=== PATIENT | male | born 1945 | race Caucasian/White ===

== ENCOUNTER 2022-12-02 18:35 | Inpatient (IN) | payer MEDICARE, MEDICAID ==
[~2022-12-02] VITALS: Ht 188 cm; Wt 110.7 kg
[2022-12-02] MEDS ORDERED: FERR-68 PO (19:14)
[2022-12-02] MEDS ORDERED: ACET325T53 PO (19:14)
[2022-12-02] MEDS ORDERED: ERYT30GE8 RIGHTEYE (19:14)
[2022-12-02] MEDS ORDERED: BENZ1LOZ58 PO (19:14)
[2022-12-02] MEDS ORDERED: NA P133E RC (19:14)
[2022-12-02] MEDS ORDERED: CLOP75TA15 PO (19:14)
[2022-12-02] MEDS ORDERED: CHLO118L3 PO (19:14)
[2022-12-02] MEDS ORDERED: DORZ10DR11 LEFTEYE (19:14)
[2022-12-02] MEDS ORDERED: ATRO2DRO4 EACHEYE (19:14)
[2022-12-02] MEDS ORDERED: CICL6.6S5 TP (19:14)
[2022-12-02] MEDS ORDERED: CLON0.1T PO (19:14)
[2022-12-02] MEDS ORDERED: FOLI1TAB27 PO (19:14)
[2022-12-02] MEDS ORDERED: ASPI81TA31 PO (19:14)
[2022-12-02] MEDS ORDERED: ISOS10TA8 PO (19:31)
[2022-12-02] MEDS ORDERED: IPRA3AMP22 IH (19:31)
[2022-12-02] MEDS ORDERED: MULT-1045 PO (19:31)
[2022-12-02] MEDS ORDERED: POLY15DR31 OP (19:31)
[2022-12-02] MEDS ORDERED: LATA7.5D LEFTEYE (19:31)
[2022-12-02] MEDS ORDERED: GLUC1KIT IJ (19:31)
[2022-12-02] MEDS ORDERED: MAGN400C PO (19:31)
[2022-12-02] MEDS ORDERED: GABA-532 PO (19:31)
[2022-12-02] MEDS ORDERED: OXYB5TAB16 PO (19:31)
[2022-12-02] MEDS ORDERED: HYDR-3972 PO (19:31)
[2022-12-02] MEDS ORDERED: ASPART INSULIN (19:31)
[2022-12-02] MEDS ORDERED: MAG-151 PO (19:31)
[2022-12-02] MEDS ORDERED: METH-806 PO (19:31)
[2022-12-02] MEDS ORDERED: NITR0.4T48 SL (19:31)
[2022-12-02] MEDS ORDERED: FURO80TA3 PO (19:31)
[2022-12-02] MEDS ORDERED: CYCL30DR OP (19:31)
[2022-12-02] MEDS ORDERED: NATE120T6 PO (19:31)
[2022-12-02] MEDS ORDERED: METO-356 PO (19:31)
[2022-12-02] MEDS ORDERED: ROSU20TA2 PO (19:31)
[2022-12-02] MEDS ORDERED: PANT40TA49 PO (19:31)
[2022-12-02] MEDS ORDERED: PRED5DRO16 RIGHTEYE (19:31)
[2022-12-02] MEDS ORDERED: MAGN400O6 PO (19:31)
[2022-12-02] MEDS ORDERED: MELA3CAP2 PO (19:31)
[2022-12-02 19:58] LABS: BASOPHILS % (AUTO) 0.2 % (0.0-2.0); EOSINOPHILS # (AUTO) 0.5 K/uL (0.0-0.7); HEMATOCRIT 40.8 % (36.7-47.1); HEMOGLOBIN 13.2 g/dL (12.5-16.3); LYMPHOCYTES # (AUTO) 1.2 K/uL (0.8-4.8); LYMPHOCYTES % (AUTO) 9.3 % (20.5-51.5); MEAN CORPUSCULAR HEMOGLOBIN 28.8 uug (23.8-33.4); MEAN CORPUSCULAR HGB CONC 32 g/dL (32.5-36.3); MONOCYTES # (AUTO) 0.9 K/uL (0.1-1.30); MONOCYTES % (AUTO) 7.3 % (0.0-11.0); NEUTROPHILS # (AUTO) 10.1 K/uL (1.8-8.9); NEUTROPHILS % (AUTO) 79.2 % (38.5-71.5); PLATELET COUNT (AUTO) 206 K/uL (152-348); RED BLOOD CELL COUNT(AUTO) 4.58 MIL/uL (4.06-5.63); RED CELL DISTRIBUTION WIDTH 14.4 % (12.1-16.2); WHITE BLOOD COUNT (AUTO) 12.7 K/uL (3.6-10.2)
[2022-12-02 20:06] LABS: DIFFERENTIAL COMMENT 1
[2022-12-02 20:30] LABS: CALCIUM 8.8 mg/dL (8.5-10.1); CARBON DIOXIDE 28 mmol/L (21-32); CHLORIDE 100 mmol/L (98-107); CREATININE 2.1 mg/dL (0.6-1.3); GLUCOSE 159 mg/dL (74-106); POTASSIUM 3.9 mmol/L (3.5-5.1); SODIUM SERUM 139 mmol/L (136-145); UREA NITROGEN, BLOOD 26 mg/dL (7-18)
[2022-12-02] MEDS ORDERED: MAGNESIUM HYDROXIDE 30 ML LIQUID UDC PO PRN (20:30)
[2022-12-02] MEDS ORDERED: MORPHINE SULFATE 2 MG/1 ML DISP.SYRIN IV PRN (20:30)
[2022-12-02] MEDS ORDERED: IPRATROPIUM BROMIDE 0.5 MG/2.5 ML NEBU NEB PRN (20:30)
[2022-12-02] MEDS ORDERED: METHOCARBAMOL 500 MG TABLET PO PRN (20:30)
[2022-12-02] MEDS ORDERED: ALBUTEROL SULFATE 2.5 MG/ 0.5 ML NEBU NEB PRN (20:30)
[2022-12-02] MEDS ORDERED: ACETAMINOPHEN 325 MG TABLET PO PRN (20:30)
[2022-12-02] MEDS ORDERED: METOPROLOL SUCCINATE XL 25 MG TAB.SR.24H PO SCH (20:30)
[2022-12-02] MEDS ORDERED: ONDANSETRON 4 MG/2 ML VIAL IV PRN (20:30)
[2022-12-02] MEDS ORDERED: Medication Not On Formulary EA (Melatonin 3 MG) PO PRN (20:30)
[2022-12-02] MEDS ORDERED: NITROGLYCERIN 0.4 MG/TAB BOTTLE SL PRN (20:30)
[2022-12-02] MEDS ORDERED: FLEET ENEMA 133 ML BOTTLE RC PRN (20:30)
[2022-12-02] MEDS ORDERED: HYDROCODONE/APAP 5-325MG TABLET PO PRN (20:30)
[2022-12-02 20:53] LABS: ALANINE AMINOTRANSFERASE 24 U/L (16-63); ALBUMIN 3.3 g/dL (3.4-5.0); ALKALINE PHOSPHATASE 77 U/L (50-136); ASPARTATE AMINOTRANSFERASE 12 U/L (15-37); BILIRUBIN,DIRECT 0.2 mg/dL (0.0-0.2); BILIRUBIN,TOTAL 0.5 mg/dL (0.2-1.0); NT-PRO BNP 1115 pg/mL (0-125); TOTAL PROTEIN, SERUM 6.9 g/dL (6.4-8.2)
[2022-12-02] MEDS ORDERED: Medication Not On Formulary EA (Rosuvastatin Calcium (Crestor) 20 MG) PO SCH (21:00)
[2022-12-02] MEDS ORDERED: PIPERACILLIN/TAZOBACTAM/D5W 50 ML IV ONE (21:28)
[2022-12-02] MEDS: PIPERACILLIN SODIUM/TAZOBACTAM 3.375 G in IV DEXTROSE 5% 50 ML IV SCH (21:29)
[2022-12-03 06:36] LABS: BASOPHILS % (AUTO) 0.1 % (0.0-2.0); EOSINOPHILS # (AUTO) 0.4 K/uL (0.0-0.7); EOSINOPHILS % (AUTO) 3.9 % (0.0-7.0); HEMOGLOBIN 13.3 g/dL (12.5-16.3); LYMPHOCYTES % (AUTO) 9.5 % (20.5-51.5); MEAN CORPUSCULAR HEMOGLOBIN 29.1 uug (23.8-33.4); MEAN CORPUSCULAR HGB CONC 33 g/dL (32.5-36.3); MEAN CORPUSCULAR VOLUME 87.6 fL (73.0-96.2); MONOCYTES # (AUTO) 0.9 K/uL (0.1-1.30); MONOCYTES % (AUTO) 8.1 % (0.0-11.0); NEUTROPHILS # (AUTO) 8.6 K/uL (1.8-8.9); NEUTROPHILS % (AUTO) 78.4 % (38.5-71.5); PLATELET COUNT (AUTO) 199 K/uL (152-348); RED BLOOD CELL COUNT(AUTO) 4.57 MIL/uL (4.06-5.63); RED CELL DISTRIBUTION WIDTH 14.6 % (12.1-16.2); WHITE BLOOD COUNT (AUTO) 10.9 K/uL (3.6-10.2)
[2022-12-03 06:44] LABS: DIFFERENTIAL COMMENT 1
[2022-12-03 06:55] LABS: ALANINE AMINOTRANSFERASE 22 U/L (16-63); ALBUMIN 3.1 g/dL (3.4-5.0); ALKALINE PHOSPHATASE 80 U/L (50-136); ASPARTATE AMINOTRANSFERASE 14 U/L (15-37); BILIRUBIN,TOTAL 0.5 mg/dL (0.2-1.0); CARBON DIOXIDE 26 mmol/L (21-32); CHLORIDE 100 mmol/L (98-107); CHOLESTEROL 139 mg/dL (<200); CREATININE 1.8 mg/dL (0.6-1.3); GLUCOSE 146 mg/dL (74-106); HDL CHOLESTEROL 61 mg/dL (40-60); MAGNESIUM 1.9 mg/dL (1.8-2.4); NT-PRO BNP 620 pg/mL (0-125); PHOSPHOROUS 2.8 mg/dL (2.5-4.9); POTASSIUM 3.9 mmol/L (3.5-5.1); SODIUM SERUM 138 mmol/L (136-145); TOTAL PROTEIN, SERUM 6.7 g/dL (6.4-8.2); TRIGLYCERIDES 66 MG/DL (30-150); UREA NITROGEN, BLOOD 23 mg/dL (7-18)
[2022-12-03] MEDS ORDERED: PIPERACILLIN/TAZOBACTAM/D5W 50 ML IV ONE (06:55)
[2022-12-03] MEDS: PIPERACILLIN SODIUM/TAZOBACTAM 3.375 G in IV DEXTROSE 5% 50 ML IV SCH (06:56)
[2022-12-03 06:58] LABS: THYROID STIMULATING HORMONE 2.364 mIU/mL (0.358-3.740)
[2022-12-03] MEDS ORDERED: VANCOMYCIN IV 1,250 MG in IV DEXTROSE 5% 250 ML IV ONE (08:00)
[2022-12-03] MEDS ORDERED: VANCOMYCIN IV 1,500 MG in IV DEXTROSE 5% 500 ML IV ONE (08:30)
[2022-12-03] MEDS ORDERED: Medication Not On Formulary EA (Nateglinide 120 MG) PO SCH (09:00)
[2022-12-03] MEDS ORDERED: DORZOLAMIDE/TIMOLOL OPHT DROP 10 ML BOTTLE LEFTEYE SCH (09:00)
[2022-12-03] MEDS ORDERED: ATROPINE SULFATE 1% OPHT DROP 2 ML EACHEYE SCH (09:00)
[2022-12-03] MEDS ORDERED: ISOSORBIDE MONONITRATE 10 MG TABLET PO SCH (09:00)
[2022-12-03] MEDS ORDERED: Medication Not On Formulary EA (Multivitamin (Multi-Vitamin Daily) 1 EACH) PO SCH (09:00)
[2022-12-03] MEDS: GABAPENTIN 100 MG CAPSULE PO SCH ×2 (09:00→17:31)
[2022-12-03] MEDS: CLOPIDOGREL 75 MG TABLET PO SCH (09:00)
[2022-12-03] MEDS: OXYBUTYNIN CHLORIDE 5 MG TABLET PO SCH ×3 (09:00→17:35)
[2022-12-03] MEDS: ASPIRIN 81 MG TAB.CHEW PO SCH (09:00)
[2022-12-03] MEDS ORDERED: MELATONIN 3 MG TABLET PO PRN (09:30)
[2022-12-03] MEDS ORDERED: ASPIRIN 81 MG TAB.CHEW ONE (09:56)
[2022-12-03] MEDS ORDERED: CLOPIDOGREL 75 MG TABLET ONE (09:56)
[2022-12-03] MEDS ORDERED: PANTOPRAZOLE SODIUM 40 MG TABLET.DR PO ONE (09:56)
[2022-12-03] MEDS ORDERED: OXYBUTYNIN CHLORIDE 5 MG TABLET ONE ×3 (09:57→17:29)
[2022-12-03] MEDS ORDERED: GABAPENTIN 100 MG CAPSULE ONE ×2 (09:57→17:29)
[2022-12-03] MEDS ORDERED: METOPROLOL SUCCINATE XL 25 MG TAB.SR.24H PO ONE ×2 (09:57→21:34)
[2022-12-03] MEDS ORDERED: ATROPINE SULFATE 1% OPHT DROP 2 ML ONE (09:58)
[2022-12-03] MEDS: METOPROLOL SUCCINATE XL 25 MG TAB.SR.24H PO SCH ×2 (10:04→21:43)
[2022-12-03] MEDS: PANTOPRAZOLE SODIUM 40 MG TABLET.DR PO SCH (10:05)
[2022-12-03] MEDS: ISOSORBIDE MONONITRATE 30 MG TAB.SR.24H PO SCH (10:06)
[2022-12-03] MEDS ORDERED: NATEGLINIDE 60 MG TABLET ONE ×2 (11:30→17:29)
[2022-12-03] MEDS: NATEGLINIDE 60 MG TABLET PO SCH ×2 (11:31→16:30)
[2022-12-03] MEDS: MEROPENEM 500 MG in IV NORMAL SALINE 50 ML IV SCH (14:12)
[2022-12-03] MEDS: DORZOLAMIDE/TIMOLOL OPHT DROP 10 ML BOTTLE LEFTEYE SCH (17:00)
[2022-12-03] MEDS: POLYVINYL ALCOHOL OPHT DROPS 15 ML BOTTLE EACHEYE SCH (17:33)
[2022-12-03] MEDS: ATROPINE SULFATE 1% OPHT DROP 2 ML RIGHTEYE SCH (17:34)
[2022-12-03] MEDS: prednisoLONE ACET 1% OPHT DROP 5 ML BOTTLE RIGHTEYE SCH (17:35)
[2022-12-03] MEDS ORDERED: DEXTROSE 50% 50 ML DISP.SYRIN IV PRN (19:45)
[2022-12-03] MEDS ORDERED: IPRATROPIUM BROMIDE 0.5 MG/2.5 ML NEBU NEB PRN (20:00)
[2022-12-03] MEDS ORDERED: ALBUTEROL SULFATE 2.5 MG/ 0.5 ML NEBU NEB PRN (20:00)
[2022-12-03] MEDS: HYDROCORTISONE 2.5% CREAM 20 GM TUBE TOP SCH (21:00)
[2022-12-03] MEDS: DOXYCYCLINE HYCLATE IV 100 MG in IV DEXTROSE 5% 100 ML IV SCH (21:00)
[2022-12-03] MEDS: BLOOD SUGAR DIAGNOSTIC 1 EACH STRIP VI SCH (21:24)
[2022-12-03] MEDS ORDERED: INSULIN REGULAR, HUMAN 300 UNIT/3 ML VIAL ONE (21:25)
[2022-12-03] MEDS: INSULIN REGULAR, HUMAN 300 UNIT/3 ML VIAL SQ PRN (21:29)
[2022-12-03] MEDS ORDERED: HYDROCORTISONE 1% CREAM 30 GM TUBE TP ONE (21:33)
[2022-12-03] MEDS ORDERED: ATORVASTATIN 20 MG TABLET ONE (21:34)
[2022-12-03] MEDS: ATORVASTATIN 40 MG TABLET PO SCH (21:42)
[2022-12-03] MEDS: LATANOPROST OPHT DROP 2.5 ML BOTTLE LEFTEYE SCH (21:42)
[2022-12-03] MEDS ORDERED: DOXYCYCLINE HYCLATE 100 MG TABLET ONE (22:11)
[2022-12-03] MEDS ORDERED: DOXYCYCLINE HYCLATE 100 MG TABLET PO SCH (22:30)
[2022-12-04] MEDS: MEROPENEM 500 MG in IV NORMAL SALINE 50 ML IV SCH ×2 (02:29→15:04)
[2022-12-04 05:46] LABS: BASOPHILS % (AUTO) 0.5 % (0.0-2.0); EOSINOPHILS # (AUTO) 0.3 K/uL (0.0-0.7); HEMATOCRIT 41.5 % (36.7-47.1); HEMOGLOBIN 13.8 g/dL (12.5-16.3); LYMPHOCYTES # (AUTO) 0.9 K/uL (0.8-4.8); LYMPHOCYTES % (AUTO) 11.8 % (20.5-51.5); MEAN CORPUSCULAR HEMOGLOBIN 29.4 uug (23.8-33.4); MEAN CORPUSCULAR HGB CONC 33 g/dL (32.5-36.3); MEAN CORPUSCULAR VOLUME 88.3 fL (73.0-96.2); MONOCYTES # (AUTO) 0.8 K/uL (0.1-1.30); MONOCYTES % (AUTO) 9.7 % (0.0-11.0); NEUTROPHILS # (AUTO) 5.9 K/uL (1.8-8.9); PLATELET COUNT (AUTO) 204 K/uL (152-348); RED CELL DISTRIBUTION WIDTH 14.4 % (12.1-16.2)
[2022-12-04 05:55] LABS: DIFFERENTIAL COMMENT 1
[2022-12-04 06:07] LABS: ALANINE AMINOTRANSFERASE 31 U/L (16-63); ALBUMIN 2.9 g/dL (3.4-5.0); ALKALINE PHOSPHATASE 85 U/L (50-136); ASPARTATE AMINOTRANSFERASE 18 U/L (15-37); BILIRUBIN,TOTAL 0.5 mg/dL (0.2-1.0); CALCIUM 8.5 mg/dL (8.5-10.1); CARBON DIOXIDE 27 mmol/L (21-32); CHLORIDE 103 mmol/L (98-107); GLUCOSE 153 mg/dL (74-106); MAGNESIUM 2.1 mg/dL (1.8-2.4); POTASSIUM 3.6 mmol/L (3.5-5.1); SODIUM SERUM 140 mmol/L (136-145); TOTAL PROTEIN, SERUM 6.7 g/dL (6.4-8.2); UREA NITROGEN, BLOOD 22 mg/dL (7-18)
[2022-12-04] MEDS ORDERED: PANTOPRAZOLE SODIUM 40 MG TABLET.DR PO ONE (07:02)
[2022-12-04] MEDS: PANTOPRAZOLE SODIUM 40 MG TABLET.DR PO SCH (07:05)
[2022-12-04] MEDS: BLOOD SUGAR DIAGNOSTIC 1 EACH STRIP VI SCH ×5 (07:49→21:30)
[2022-12-04] MEDS ORDERED: NATEGLINIDE 60 MG TABLET ONE (07:55)
[2022-12-04] MEDS: NATEGLINIDE 60 MG TABLET PO SCH ×3 (08:14→17:03)
[2022-12-04] MEDS: INSULIN REGULAR, HUMAN 300 UNIT/3 ML VIAL SQ PRN ×4 (08:21→20:45)
[2022-12-04] MEDS ORDERED: MAGNESIUM OXIDE 400 MG TABLET PO SCH (09:00)
[2022-12-04] MEDS ORDERED: FUROSEMIDE 40 MG TABLET PO SCH (09:29)
[2022-12-04 10:10] VITALS: BP 131/68; TEMP 98.1; O2SAT 100
[2022-12-04] MEDS: ISOSORBIDE MONONITRATE 30 MG TAB.SR.24H PO SCH (10:55)
[2022-12-04] MEDS: MULTIVITAMINS,THERAPEUTIC TABLET PO SCH (10:56)
[2022-12-04] MEDS: prednisoLONE ACET 1% OPHT DROP 5 ML BOTTLE RIGHTEYE SCH ×2 (10:57→17:04)
[2022-12-04] MEDS: ATROPINE SULFATE 1% OPHT DROP 2 ML RIGHTEYE SCH ×2 (10:58→17:04)
[2022-12-04] MEDS: POLYVINYL ALCOHOL OPHT DROPS 15 ML BOTTLE EACHEYE SCH ×2 (10:58→17:04)
[2022-12-04] MEDS: DOXYCYCLINE HYCLATE IV 100 MG in IV DEXTROSE 5% 100 ML IV SCH ×2 (10:59→20:32)
[2022-12-04] MEDS: CLOPIDOGREL 75 MG TABLET PO SCH (11:07)
[2022-12-04] MEDS: FUROSEMIDE 40 MG TABLET PO SCH (11:08)
[2022-12-04] MEDS: ASPIRIN 81 MG TAB.CHEW PO SCH (11:08)
[2022-12-04] MEDS: OXYBUTYNIN CHLORIDE 5 MG TABLET PO SCH ×3 (11:08→17:06)
[2022-12-04] MEDS: METOPROLOL SUCCINATE XL 25 MG TAB.SR.24H PO SCH ×2 (11:08→20:30)
[2022-12-04] MEDS: glipiZIDE 5 MG TABLET PO SCH ×2 (11:09→17:06)
[2022-12-04] MEDS: HYDROCORTISONE 2.5% CREAM 20 GM TUBE TOP SCH ×2 (11:09→20:32)
[2022-12-04] MEDS: FLUTICASONE/VILANTEROL 1 EACH BLST.W.DEV INH SCH (11:10)
[2022-12-04] MEDS: GABAPENTIN 100 MG CAPSULE PO SCH ×2 (11:11→17:06)
[2022-12-04 11:52] LABS: CREATINE KINASE, TOTAL 73 U/L (39-308); PHOSPHOROUS 3.2 mg/dL (2.5-4.9); VANCOMYCIN,RANDOM 6.8 ug/mL (18.0-26.0)
[2022-12-04 12:00] VITALS: BP 126/71; TEMP 97.8; O2SAT 100
[2022-12-04] MEDS ORDERED: VANCOMYCIN IV 1,250 MG in IV DEXTROSE 5% 250 ML IV ONE (12:00)
[2022-12-04] MEDS: DORZOLAMIDE/TIMOLOL OPHT DROP 10 ML BOTTLE LEFTEYE SCH ×2 (12:48→17:04)
[2022-12-04 16:00] VITALS: BP 129/67; TEMP 97.9; O2SAT 100
[2022-12-04 20:00] VITALS: BP 145/71; TEMP 98.5; O2SAT 99
[2022-12-04] MEDS: ATORVASTATIN 40 MG TABLET PO SCH (20:30)
[2022-12-04] MEDS: LATANOPROST OPHT DROP 2.5 ML BOTTLE LEFTEYE SCH (20:31)
[2022-12-05] VITALS (7 sets, daily range): BP systolic 130–151; BP diastolic 61–78; TEMP 97.7–98.7; O2SAT 94–96
[2022-12-05] MEDS: MEROPENEM 500 MG in IV NORMAL SALINE 50 ML IV SCH ×2 (01:08→13:52)
[2022-12-05] MEDS: PANTOPRAZOLE SODIUM 40 MG TABLET.DR PO SCH ×2 (06:11→06:33)
[2022-12-05] MEDS: NATEGLINIDE 60 MG TABLET PO SCH ×3 (06:32→16:47)
[2022-12-05] MEDS: glipiZIDE 5 MG TABLET PO SCH ×2 (06:33→16:46)
[2022-12-05] MEDS: BLOOD SUGAR DIAGNOSTIC 1 EACH STRIP VI SCH ×3 (06:33→17:04)
[2022-12-05] MEDS: prednisoLONE ACET 1% OPHT DROP 5 ML BOTTLE RIGHTEYE SCH ×2 (09:00→16:49)
[2022-12-05] MEDS: CLOPIDOGREL 75 MG TABLET PO SCH (09:50)
[2022-12-05] MEDS: ATROPINE SULFATE 1% OPHT DROP 2 ML RIGHTEYE SCH ×2 (10:22→16:49)
[2022-12-05] MEDS: FLUTICASONE/VILANTEROL 1 EACH BLST.W.DEV INH SCH (10:22)
[2022-12-05] MEDS: POLYVINYL ALCOHOL OPHT DROPS 15 ML BOTTLE EACHEYE SCH ×2 (10:23→16:50)
[2022-12-05] MEDS: DORZOLAMIDE/TIMOLOL OPHT DROP 10 ML BOTTLE LEFTEYE SCH ×2 (10:23→17:04)
[2022-12-05] MEDS: METOPROLOL SUCCINATE XL 25 MG TAB.SR.24H PO SCH ×2 (10:31→22:44)
[2022-12-05] MEDS: ISOSORBIDE MONONITRATE 30 MG TAB.SR.24H PO SCH (10:31)
[2022-12-05] MEDS: OXYBUTYNIN CHLORIDE 5 MG TABLET PO SCH ×3 (10:32→16:46)
[2022-12-05] MEDS: MULTIVITAMINS,THERAPEUTIC TABLET PO SCH (10:32)
[2022-12-05] MEDS: GABAPENTIN 100 MG CAPSULE PO SCH ×2 (10:32→16:46)
[2022-12-05] MEDS: ASPIRIN 81 MG TAB.CHEW PO SCH (10:32)
[2022-12-05] MEDS: FUROSEMIDE 40 MG TABLET PO SCH (10:32)
[2022-12-05] MEDS: HYDROCORTISONE 2.5% CREAM 20 GM TUBE TOP SCH ×2 (10:33→22:46)
[2022-12-05] MEDS: DOXYCYCLINE HYCLATE IV 100 MG in IV DEXTROSE 5% 100 ML IV SCH ×2 (10:48→22:33)
[2022-12-05] MEDS: INSULIN REGULAR, HUMAN 300 UNIT/3 ML VIAL SQ PRN (13:02)
[2022-12-05] MEDS ORDERED: VANCOMYCIN IV 1,250 MG in IV DEXTROSE 5% 250 ML IV ONE ×2 (14:00→21:30)
[2022-12-05] MEDS ORDERED: ATORVASTATIN 20 MG TABLET PO SCH (21:00)
[2022-12-05] MEDS: LATANOPROST OPHT DROP 2.5 ML BOTTLE LEFTEYE SCH (22:39)
[2022-12-05] MEDS ORDERED: VANCOMYCIN IV 200 ML ONE (23:53)
[2022-12-05] MEDS ORDERED: VANCOMYCIN HCL 500 MG VIAL ONE (23:53)
[2022-12-06] MEDS: MEROPENEM 500 MG in IV NORMAL SALINE 50 ML IV SCH (02:00)
[2022-12-06 07:02] LABS: BASOPHILS % (AUTO) 0.4 % (0.0-2.0); EOSINOPHILS # (AUTO) 0.4 K/uL (0.0-0.7); EOSINOPHILS % (AUTO) 4.8 % (0.0-7.0); HEMATOCRIT 40.9 % (36.7-47.1); HEMOGLOBIN 13.9 g/dL (12.5-16.3); LYMPHOCYTES # (AUTO) 1.5 K/uL (0.8-4.8); MEAN CORPUSCULAR HEMOGLOBIN 29.5 uug (23.8-33.4); MEAN CORPUSCULAR HGB CONC 34 g/dL (32.5-36.3); MEAN CORPUSCULAR VOLUME 86.9 fL (73.0-96.2); MONOCYTES # (AUTO) 0.9 K/uL (0.1-1.30); MONOCYTES % (AUTO) 10.2 % (0.0-11.0); NEUTROPHILS # (AUTO) 5.8 K/uL (1.8-8.9); NEUTROPHILS % (AUTO) 67.6 % (38.5-71.5); PLATELET COUNT (AUTO) 237 K/uL (152-348); RED CELL DISTRIBUTION WIDTH 14.2 % (12.1-16.2); WHITE BLOOD COUNT (AUTO) 8.6 K/uL (3.6-10.2)
[2022-12-06 07:04] LABS: CALCIUM 9.1 mg/dL (8.5-10.1); CARBON DIOXIDE 26 mmol/L (21-32); CHLORIDE 103 mmol/L (98-107); CREATININE 1.9 mg/dL (0.6-1.3); GLUCOSE 120 mg/dL (74-106); MAGNESIUM 2.1 mg/dL (1.8-2.4); PHOSPHOROUS 3.7 mg/dL (2.5-4.9); POTASSIUM 3.9 mmol/L (3.5-5.1); SODIUM SERUM 140 mmol/L (136-145); UREA NITROGEN, BLOOD 25 mg/dL (7-18)
[2022-12-06 07:06] LABS: PTH, INTACT 33 pg/mL (15-65)
[2022-12-06] MEDS: PANTOPRAZOLE SODIUM 40 MG TABLET.DR PO SCH (07:12)
[2022-12-06 07:14] LABS: DIFFERENTIAL COMMENT 1
[2022-12-06] MEDS: BLOOD SUGAR DIAGNOSTIC 1 EACH STRIP VI SCH ×2 (07:59→12:19)
[2022-12-06] MEDS: glipiZIDE 5 MG TABLET PO SCH (08:04)
[2022-12-06] MEDS: NATEGLINIDE 60 MG TABLET PO SCH ×2 (08:05→12:32)
[2022-12-06] MEDS ORDERED: DOXYCYCLINE HYCLATE 100 MG TABLET PO SCH (09:00)
[2022-12-06] MEDS: FUROSEMIDE 40 MG TABLET PO SCH (09:52)
[2022-12-06] MEDS: CLOPIDOGREL 75 MG TABLET PO SCH (09:52)
[2022-12-06] MEDS: OXYBUTYNIN CHLORIDE 5 MG TABLET PO SCH ×2 (09:52→13:18)
[2022-12-06] MEDS: MULTIVITAMINS,THERAPEUTIC TABLET PO SCH (09:52)
[2022-12-06] MEDS: GABAPENTIN 100 MG CAPSULE PO SCH (09:52)
[2022-12-06] MEDS: ISOSORBIDE MONONITRATE 30 MG TAB.SR.24H PO SCH (09:53)
[2022-12-06] MEDS: METOPROLOL SUCCINATE XL 25 MG TAB.SR.24H PO SCH (09:54)
[2022-12-06] MEDS: FLUTICASONE/VILANTEROL 1 EACH BLST.W.DEV INH SCH (09:55)
[2022-12-06] MEDS: prednisoLONE ACET 1% OPHT DROP 5 ML BOTTLE RIGHTEYE SCH (09:56)
[2022-12-06] MEDS: POLYVINYL ALCOHOL OPHT DROPS 15 ML BOTTLE EACHEYE SCH (09:56)
[2022-12-06] MEDS: ATROPINE SULFATE 1% OPHT DROP 2 ML RIGHTEYE SCH (09:57)
[2022-12-06] MEDS: HYDROCORTISONE 2.5% CREAM 20 GM TUBE TOP SCH (09:57)
[2022-12-06] MEDS: DORZOLAMIDE/TIMOLOL OPHT DROP 10 ML BOTTLE LEFTEYE SCH (09:58)
[2022-12-06] MEDS: ASPIRIN 81 MG TAB.CHEW PO SCH (09:59)
[2022-12-06 11:29] VITALS: BP 131/73; TEMP 98.5; O2SAT 94
[2022-12-06] MEDS ORDERED: DOXY100T2 PO (14:10)
[2022-12-06] MEDS ORDERED: FURO40TA5 PO (14:10)
[2022-12-06] MEDS ORDERED: ACET325T53 PO (14:10)
[2022-12-06] MEDS ORDERED: ROSU5TAB PO (14:10)
[2022-12-06] MEDS ORDERED: LEVO250T59 PO (14:10)
[2022-12-06] MEDS ORDERED: ASPI-1101 PO (14:10)
[2022-12-06] MEDS ORDERED: ACID1TAB4 PO (14:10)
[2022-12-06] MEDS ORDERED: GLIP5TAB13 PO (14:16)
[2022-12-06] MEDS ORDERED: ROSU20TA2 PO (15:04)
[2022-12-06] MEDS ORDERED: levoFLOXacin 500 MG TABLET PO SCH (16:30)
[2022-12-06] MEDS ORDERED: VANCOMYCIN IV 1,500 MG in IV DEXTROSE 5% 500 ML IV SCH (21:00)
[2022-12-07 08:06] LABS: A/G RATIO 0.9 (0.7-1.7); ALBUMIN 2.7 g/dL (2.9-4.4); ALPHA-1-GLOBULIN 0.4 g/dL (0.0-0.4); ALPHA-2-GLOBULIN 1.2 g/dL (0.4-1.0); BETA GLOBULIN 1.1 g/dL (0.7-1.3); GAMMA GLOBULIN 0.2 g/dL (0.4-1.8); GLOBULIN, TOTAL 2.9 g/dL (2.2-3.9); M-SPIKE Not Observed g/dL (Not Observed)
== END 2022-12-06 16:30 | DRG 871 ==
LOC: ER 18:40 → TRANSITION 21:00 → TELE3 12-04 09:03
PROVIDERS: ADMIT Internal Medicine; ATTEND Internal Medicine
DX: A41.9 Sepsis, unspecified organism (principal); N17.0 Acute kidney failure with tubular necrosis; L03.115 Cellulitis of right lower limb; I42.9 Cardiomyopathy, unspecified; L03.116 Cellulitis of left lower limb; I13.0 Hypertensive heart and chronic kidney disease with heart failure and stage 1 through stage 4 chronic kidney disease, or unspecified chronic kidney disease; I50.32 Chronic diastolic (congestive) heart failure; E11.22 Type 2 diabetes mellitus with diabetic chronic kidney disease; E66.9 Obesity, unspecified; E78.5 Hyperlipidemia, unspecified; I25.10 Atherosclerotic heart disease of native coronary artery without angina pectoris; I25.2 Old myocardial infarction; K21.9 Gastro-esophageal reflux disease without esophagitis; M79.7 Fibromyalgia; J44.9 Chronic obstructive pulmonary disease, unspecified; N18.9 Chronic kidney disease, unspecified; Z20.822 Contact with and (suspected) exposure to COVID-19; Z88.0 Allergy status to penicillin; Z95.1 Presence of aortocoronary bypass graft; Z86.16 Personal history of COVID-19; Z79.82 Long term (current) use of aspirin; Z79.4 Long term (current) use of insulin; Z95.5 Presence of coronary angioplasty implant and graft; Z95.810 Presence of automatic (implantable) cardiac defibrillator; I87.2 Venous insufficiency (chronic) (peripheral); F17.210 Nicotine dependence, cigarettes, uncomplicated; M19.90 Unspecified osteoarthritis, unspecified site; H54.61 Unqualified visual loss, right eye, normal vision left eye; N40.0 Benign prostatic hyperplasia without lower urinary tract symptoms; F41.9 Anxiety disorder, unspecified; F25.9 Schizoaffective disorder, unspecified; F31.9 Bipolar disorder, unspecified; G20 Parkinson's disease; F39 Unspecified mood [affective] disorder; E11.65 Type 2 diabetes mellitus with hyperglycemia; H40.9 Unspecified glaucoma; Z68.31 Body mass index [BMI] 31.0-31.9, adult
CPT/HCPCS: 36415; 71045; 76770; 82652; 83735; 83970; 84100; 84155; 84165; 84443; 85025; 85610; 85730; 87040; 93005; 93307; A4663; G0378; J1815; J2185; J2543; J2650; J3370; J3490; J7050; J7060

== ENCOUNTER 2023-04-08 09:39 | Inpatient (IN) | payer MEDICARE, OTHER ==
[~2023-04-08] VITALS: Ht 188 cm; Wt 109.3 kg
[~2023-04-08 09:39] MED LIST: ACET325T53 PO; ACID1TAB4 PO; ASPI-1101 PO; ATRO2DRO4 RIGHTEYE; CLOP75TA15 PO; CYCL30DR OP; DORZ10DR11 LEFTEYE; DOXY100T2 PO; FURO40TA5 PO; GABA-532 PO; GLIP5TAB13 PO; HYDR-3972 PO; IPRA3AMP22 IH; ISOS10TA8 PO; LATA7.5D LEFTEYE; LEVO250T59 PO; MELA3CAP2 PO; METH-806 PO; METO-356 PO; MULT-1045 PO; NA P133E RC; NATE120T6 PO; NITR0.4T48 SL; OXYB5TAB16 PO; PANT40TA49 PO; POLY15DR31 OP; PRED5DRO16 RIGHTEYE; ROSU20TA2 PO
[2023-04-08] MEDS ORDERED: CLON0.1T PO (10:09)
[2023-04-08] MEDS ORDERED: FLUT16SP BNOSTRILS (10:09)
[2023-04-08] MEDS ORDERED: PEG15DRO3 OP (10:09)
[2023-04-08] MEDS ORDERED: ONDA4TAB5 PO (10:09)
[2023-04-08] MEDS ORDERED: LOPE2TAB25 PO (10:09)
[2023-04-08] MEDS ORDERED: SIME80TA15 PO (10:09)
[2023-04-08] MEDS ORDERED: WHEA1POW6 PO (10:09)
[2023-04-08] MEDS ORDERED: MAGN400C PO (10:09)
[2023-04-08 10:30] LABS: BASOPHILS % (AUTO) 0.3 % (0.0-2.0); EOSINOPHILS # (AUTO) 0.5 K/uL (0.0-0.7); EOSINOPHILS % (AUTO) 7.8 % (0.0-7.0); HEMATOCRIT 40.3 % (36.7-47.1); HEMOGLOBIN 13.1 g/dL (12.5-16.3); LYMPHOCYTES # (AUTO) 1.5 K/uL (0.8-4.8); LYMPHOCYTES % (AUTO) 22.6 % (20.5-51.5); MEAN CORPUSCULAR HEMOGLOBIN 28.6 uug (23.8-33.4); MEAN CORPUSCULAR HGB CONC 33 g/dL (32.5-36.3); MEAN CORPUSCULAR VOLUME 88.1 fL (73.0-96.2); MONOCYTES # (AUTO) 0.6 K/uL (0.1-1.30); MONOCYTES % (AUTO) 9.4 % (0.0-11.0); NEUTROPHILS # (AUTO) 3.8 K/uL (1.8-8.9); NEUTROPHILS % (AUTO) 59.9 % (38.5-71.5); PLATELET COUNT (AUTO) 189 K/uL (152-348); RED BLOOD CELL COUNT(AUTO) 4.57 MIL/uL (4.06-5.63); RED CELL DISTRIBUTION WIDTH 15.3 % (12.1-16.2); WHITE BLOOD COUNT (AUTO) 6.4 K/uL (3.6-10.2)
[2023-04-08 10:33] LABS: DIFFERENTIAL COMMENT 1
[2023-04-08 10:46] LABS: ALANINE AMINOTRANSFERASE 34 U/L (16-63); ALBUMIN 3.6 g/dL (3.4-5.0); ALKALINE PHOSPHATASE 70 U/L (50-136); ASPARTATE AMINOTRANSFERASE 15 U/L (15-37); BILIRUBIN,DIRECT 0.1 mg/dL (0.0-0.2); BILIRUBIN,TOTAL 0.4 mg/dL (0.2-1.0); CALCIUM 9.7 mg/dL (8.5-10.1); CARBON DIOXIDE 29 mmol/L (21-32); CHLORIDE 106 mmol/L (98-107); CREATININE 1.7 mg/dL (0.6-1.3); GLUCOSE 132 mg/dL (74-106); POTASSIUM 4.7 mmol/L (3.5-5.1); SODIUM SERUM 144 mmol/L (136-145); TOTAL PROTEIN, SERUM 6.5 g/dL (6.4-8.2); UREA NITROGEN, BLOOD 23 mg/dL (7-18)
[2023-04-08] MEDS ORDERED: FLUTICASONE PROP NASAL SPRAY 16 GM BOTTLE NS PRN (18:15)
[2023-04-08] MEDS ORDERED: CLONIDINE HCL 0.1 MG TABLET PO PRN (18:15)
[2023-04-08] MEDS ORDERED: METHOCARBAMOL 500 MG TABLET PO PRN (18:15)
[2023-04-08] MEDS ORDERED: NITROGLYCERIN 0.4 MG/TAB BOTTLE SL PRN (18:15)
[2023-04-08] MEDS ORDERED: FLEET ENEMA 133 ML BOTTLE RC PRN (18:15)
[2023-04-08 18:17] LABS: *BILIRUBIN,URIN NEGATIVE (NEGATIVE); *BLOOD, URINE NEGATIVE (NEGATIVE); *CLARITY,URINE CLEAR (CLEAR); *COLOR,URINE YELLOW (YELLOW); *KETONES,URINE NEGATIVE (NEGATIVE); *PROTEIN,URINE NEGATIVE (NEGATIVE); *UROBILINOGEN,URINE 0.2 E.U./dl (NORMAL); LEUKOCYTE ESTERASE ,URINE NEGATIVE (NEGATIVE); NITRITE, URINE NEGATIVE (NEGATIVE); UGLUCOSE TRACE (NEGATIVE)
[2023-04-08] MEDS ORDERED: MORPHINE SULFATE 2 MG/1 ML DISP.SYRIN IV PRN (18:30)
[2023-04-08] MEDS ORDERED: ONDANSETRON 4 MG/2 ML VIAL IV PRN (18:30)
[2023-04-08 19:34] LABS: RBC,URINE 0-3 /HPF (0-3); WBC,URINE NONE SEEN /HPF (0-3)
[2023-04-08 19:35] LABS: BACTERIA,URINE NONE SEEN /HPF (NONE SEEN); SQUAMOUS EPITHELIAL CELL,UR NONE SEEN /HPF (NONE SEEN)
[2023-04-08 21:02] LABS: *OCCULT BLOOD STOOL NEGATIVE (NEGATIVE)
[2023-04-08 21:30] VITALS: BP 150/81; TEMP 98.6; O2SAT 95
[2023-04-08] MEDS ORDERED: ACETAMINOPHEN 325 MG TABLET PO PRN (21:45)
[2023-04-08] MEDS ORDERED: LOPERAMIDE HCL 2 MG CAPSULE PO PRN (22:00)
[2023-04-08] MEDS ORDERED: MELATONIN 3 MG TABLET PO PRN (22:00)
[2023-04-08] MEDS: HYDROCODONE/APAP 5-325MG TABLET PO PRN (23:18)
[2023-04-09] VITALS: BP 151/75; TEMP 98.2; O2SAT 98
[2023-04-09 04:00] VITALS: BP 119/76; TEMP 97.6; O2SAT 94
[2023-04-09 05:31] LABS: BASOPHILS % (AUTO) 0.5 % (0.0-2.0); EOSINOPHILS # (AUTO) 0.6 K/uL (0.0-0.7); EOSINOPHILS % (AUTO) 7.8 % (0.0-7.0); HEMATOCRIT 43.5 % (36.7-47.1); HEMOGLOBIN 14.3 g/dL (12.5-16.3); LYMPHOCYTES # (AUTO) 1.6 K/uL (0.8-4.8); MEAN CORPUSCULAR HEMOGLOBIN 28.7 uug (23.8-33.4); MEAN CORPUSCULAR HGB CONC 33 g/dL (32.5-36.3); MEAN CORPUSCULAR VOLUME 87.4 fL (73.0-96.2); MONOCYTES # (AUTO) 0.8 K/uL (0.1-1.30); MONOCYTES % (AUTO) 10.9 % (0.0-11.0); NEUTROPHILS # (AUTO) 4.4 K/uL (1.8-8.9); NEUTROPHILS % (AUTO) 58.8 % (38.5-71.5); PLATELET COUNT (AUTO) 217 K/uL (152-348); RED BLOOD CELL COUNT(AUTO) 4.98 MIL/uL (4.06-5.63); RED CELL DISTRIBUTION WIDTH 15.6 % (12.1-16.2); WHITE BLOOD COUNT (AUTO) 7.4 K/uL (3.6-10.2)
[2023-04-09 05:33] LABS: DIFFERENTIAL COMMENT 1
[2023-04-09 05:50] LABS: IRON, SERUM 52 ug/dL (50-175)
[2023-04-09 05:57] LABS: THYROID STIMULATING HORMONE 2.768 mIU/mL (0.358-3.740)
[2023-04-09] MEDS: PANTOPRAZOLE SODIUM 40 MG TABLET.DR PO SCH (06:05)
[2023-04-09 06:51] LABS: ALANINE AMINOTRANSFERASE 36 U/L (16-63); ALKALINE PHOSPHATASE 77 U/L (50-136); ASPARTATE AMINOTRANSFERASE 19 U/L (15-37); BILIRUBIN,TOTAL 0.3 mg/dL (0.2-1.0); CALCIUM 9.5 mg/dL (8.5-10.1); CARBON DIOXIDE 25 mmol/L (21-32); CHLORIDE 108 mmol/L (98-107); CHOLESTEROL 154 mg/dL (<200); CREATININE 1.6 mg/dL (0.6-1.3); GLUCOSE 153 mg/dL (74-106); HDL CHOLESTEROL 54 mg/dL (40-60); MAGNESIUM 2.4 mg/dL (1.8-2.4); NT-PRO BNP 599 pg/mL (0-125); PHOSPHOROUS 2.7 mg/dL (2.5-4.9); SODIUM SERUM 146 mmol/L (136-145); TOTAL PROTEIN, SERUM 7.2 g/dL (6.4-8.2); TRIGLYCERIDES 116 MG/DL (30-150); UREA NITROGEN, BLOOD 21 mg/dL (7-18)
[2023-04-09 08:00] VITALS: BP 172/92; TEMP 97.6; O2SAT 96
[2023-04-09] MEDS: OXYBUTYNIN CHLORIDE 5 MG TABLET PO SCH ×3 (08:47→18:37)
[2023-04-09] MEDS: MULTIVITAMINS,THERAPEUTIC TABLET PO SCH (08:47)
[2023-04-09] MEDS: ASPIRIN EC 81 MG TABLET.DR PO SCH (08:47)
[2023-04-09] MEDS: CLOPIDOGREL 75 MG TABLET PO SCH (08:47)
[2023-04-09] MEDS: GABAPENTIN 100 MG CAPSULE PO SCH ×2 (08:47→18:38)
[2023-04-09] MEDS: glipiZIDE 5 MG TABLET PO SCH ×2 (08:48→18:38)
[2023-04-09] MEDS: ACIDOPHILUS/BULGARICUS CHEW TAB PO SCH ×2 (08:48→18:37)
[2023-04-09] MEDS: FUROSEMIDE 40 MG TABLET PO SCH (08:48)
[2023-04-09] MEDS: DORZOLAMIDE/TIMOLOL OPHT DROP 10 ML BOTTLE LEFTEYE SCH ×2 (08:58→18:37)
[2023-04-09] MEDS: ATROPINE SULFATE 1% OPHT DROP 2 ML RIGHTEYE SCH ×2 (08:58→18:37)
[2023-04-09] MEDS: NATEGLINIDE 60 MG TABLET PO SCH ×3 (08:59→18:37)
[2023-04-09] MEDS ORDERED: WHEAT DEXTRIN PO SCH (09:00)
[2023-04-09] MEDS: METOPROLOL SUCCINATE XL 25 MG TAB.SR.24H PO SCH ×2 (09:12→18:46)
[2023-04-09] MEDS: ISOSORBIDE MONONITRATE 10 MG TABLET PO SCH (09:12)
[2023-04-09 12:00] VITALS: BP 124/78; TEMP 97.5; O2SAT 95
[2023-04-09] MEDS: hydrALAZINE HCL 25 MG TABLET PO SCH ×2 (18:46→21:26)
[2023-04-09 20:00] VITALS: BP 150/91; TEMP 97.1; O2SAT 97
[2023-04-09] MEDS: MAGNESIUM OXIDE 400 MG TABLET PO SCH (21:25)
[2023-04-09] MEDS: ATORVASTATIN 40 MG TABLET PO SCH (21:26)
[2023-04-10] VITALS: BP 181/90; TEMP 98.6; O2SAT 94
[2023-04-10 04:00] VITALS: BP 136/67; TEMP 98.1; O2SAT 96
[2023-04-10] MEDS: PANTOPRAZOLE SODIUM 40 MG TABLET.DR PO SCH (06:05)
[2023-04-10] MEDS: hydrALAZINE HCL 25 MG TABLET PO SCH ×3 (06:05→21:39)
[2023-04-10 07:04] LABS: ALANINE AMINOTRANSFERASE 28 U/L (16-63); ALBUMIN 3.5 g/dL (3.4-5.0); ALKALINE PHOSPHATASE 71 U/L (50-136); ASPARTATE AMINOTRANSFERASE 19 U/L (15-37); BILIRUBIN,TOTAL 0.4 mg/dL (0.2-1.0); CALCIUM 9.1 mg/dL (8.5-10.1); CARBON DIOXIDE 24 mmol/L (21-32); CHLORIDE 106 mmol/L (98-107); CREATINE KINASE, TOTAL 144 U/L (39-308); CREATININE 1.5 mg/dL (0.6-1.3); GLUCOSE 132 mg/dL (74-106); MAGNESIUM 2.2 mg/dL (1.8-2.4); PHOSPHOROUS 2.5 mg/dL (2.5-4.9); POTASSIUM 3.6 mmol/L (3.5-5.1); SODIUM SERUM 141 mmol/L (136-145); TOTAL PROTEIN, SERUM 6.4 g/dL (6.4-8.2); UREA NITROGEN, BLOOD 22 mg/dL (7-18)
[2023-04-10 07:54] LABS: BASOPHILS % (AUTO) 0.2 % (0.0-2.0); DIFFERENTIAL COMMENT 0; EOSINOPHILS # (AUTO) 0.6 K/uL (0.0-0.7); EOSINOPHILS % (AUTO) 8.7 % (0.0-7.0); HEMATOCRIT 40.1 % (36.7-47.1); HEMOGLOBIN 13.2 g/dL (12.5-16.3); LYMPHOCYTES # (AUTO) 1.6 K/uL (0.8-4.8); LYMPHOCYTES % (AUTO) 23.9 % (20.5-51.5); MEAN CORPUSCULAR HEMOGLOBIN 28.8 uug (23.8-33.4); MEAN CORPUSCULAR HGB CONC 33 g/dL (32.5-36.3); MEAN CORPUSCULAR VOLUME 87.4 fL (73.0-96.2); MONOCYTES # (AUTO) 0.6 K/uL (0.1-1.30); MONOCYTES % (AUTO) 9.2 % (0.0-11.0); NEUTROPHILS # (AUTO) 3.8 K/uL (1.8-8.9); PLATELET COUNT (AUTO) 198 K/uL (152-348); RED CELL DISTRIBUTION WIDTH 15.5 % (12.1-16.2); WHITE BLOOD COUNT (AUTO) 6.5 K/uL (3.6-10.2)
[2023-04-10] MEDS: glipiZIDE 5 MG TABLET PO SCH ×2 (08:30→17:52)
[2023-04-10] MEDS: POLYVINYL ALCOHOL OPHT DROPS 15 ML BOTTLE OP PRN ×2 (10:32→12:13)
[2023-04-10] MEDS: METOPROLOL SUCCINATE XL 25 MG TAB.SR.24H PO SCH ×2 (10:33→17:50)
[2023-04-10] MEDS: CLOPIDOGREL 75 MG TABLET PO SCH (10:33)
[2023-04-10] MEDS: MULTIVITAMINS,THERAPEUTIC TABLET PO SCH (10:33)
[2023-04-10] MEDS: OXYBUTYNIN CHLORIDE 5 MG TABLET PO SCH ×3 (10:33→17:48)
[2023-04-10] MEDS: ACIDOPHILUS/BULGARICUS CHEW TAB PO SCH ×2 (10:33→17:48)
[2023-04-10] MEDS: ASPIRIN EC 81 MG TABLET.DR PO SCH (10:33)
[2023-04-10] MEDS: ATROPINE SULFATE 1% OPHT DROP 2 ML RIGHTEYE SCH ×2 (10:37→17:27)
[2023-04-10] MEDS: GABAPENTIN 100 MG CAPSULE PO SCH ×2 (10:37→17:48)
[2023-04-10] MEDS: NATEGLINIDE 60 MG TABLET PO SCH ×3 (10:38→17:48)
[2023-04-10] MEDS: DORZOLAMIDE/TIMOLOL OPHT DROP 10 ML BOTTLE LEFTEYE SCH ×2 (10:39→17:48)
[2023-04-10] MEDS: ISOSORBIDE MONONITRATE 10 MG TABLET PO SCH (10:39)
[2023-04-10] MEDS: FUROSEMIDE 40 MG TABLET PO SCH (10:42)
[2023-04-10 12:00] VITALS: BP 137/60; TEMP 98.8; O2SAT 95
[2023-04-10] MEDS: POLYVINYL ALCOHOL OPHT DROPS 15 ML BOTTLE EACHEYE SCH ×2 (12:00→17:00)
[2023-04-10 14:01] LABS: *BILIRUBIN,URIN NEGATIVE (NEGATIVE); *BLOOD, URINE NEGATIVE (NEGATIVE); *CLARITY,URINE CLEAR (CLEAR); *COLOR,URINE YELLOW (YELLOW); *KETONES,URINE NEGATIVE (NEGATIVE); *PROTEIN,URINE NEGATIVE (NEGATIVE); *UROBILINOGEN,URINE 0.2 E.U./dl (NORMAL); LEUKOCYTE ESTERASE ,URINE NEGATIVE (NEGATIVE); NITRITE, URINE POSITIVE (NEGATIVE); PH,URINE 6.5 (5.0-8.0); UGLUCOSE NEGATIVE (NEGATIVE)
[2023-04-10 14:08] LABS: *CREATININE,URINE 96.3 mg/dL (30-125); *URINE TOTAL PROTEIN RANDOM 20.1 mg/dL (<150/24HR)
[2023-04-10 15:36] VITALS: BP 136/85; TEMP 97.4; O2SAT 96
[2023-04-10 15:53] LABS: BACTERIA,URINE MODERATE /HPF (NONE SEEN); RBC,URINE 0-3 /HPF (0-3); SQUAMOUS EPITHELIAL CELL,UR NONE SEEN /HPF (NONE SEEN); WBC,URINE NONE SEEN /HPF (0-3)
[2023-04-10 20:00] VITALS: BP 148/79; TEMP 97.8; O2SAT 97
[2023-04-10] MEDS: MAGNESIUM OXIDE 400 MG TABLET PO SCH (21:39)
[2023-04-10] MEDS: ATORVASTATIN 40 MG TABLET PO SCH (21:40)
[2023-04-10 23:49] VITALS: BP 133/69; TEMP 97.6; O2SAT 97
[2023-04-10] MEDS: HYDROCODONE/APAP 5-325MG TABLET PO PRN (23:55)
[2023-04-11 03:22] VITALS: BP 116/71; TEMP 98.2; O2SAT 96
[2023-04-11] MEDS: hydrALAZINE HCL 25 MG TABLET PO SCH ×3 (06:18→21:16)
[2023-04-11] MEDS: PANTOPRAZOLE SODIUM 40 MG TABLET.DR PO SCH (06:18)
[2023-04-11] MEDS: glipiZIDE 5 MG TABLET PO SCH ×2 (08:35→16:57)
[2023-04-11] MEDS: POLYVINYL ALCOHOL OPHT DROPS 15 ML BOTTLE EACHEYE SCH ×2 (09:00→16:59)
[2023-04-11] MEDS: OXYBUTYNIN CHLORIDE 5 MG TABLET PO SCH ×3 (09:58→17:01)
[2023-04-11] MEDS: ACIDOPHILUS/BULGARICUS CHEW TAB PO SCH ×2 (09:58→17:01)
[2023-04-11] MEDS: FUROSEMIDE 40 MG TABLET PO SCH (09:58)
[2023-04-11] MEDS: MULTIVITAMINS,THERAPEUTIC TABLET PO SCH (09:58)
[2023-04-11] MEDS: CLOPIDOGREL 75 MG TABLET PO SCH (09:58)
[2023-04-11] MEDS: ASPIRIN EC 81 MG TABLET.DR PO SCH (09:58)
[2023-04-11] MEDS: GABAPENTIN 100 MG CAPSULE PO SCH ×2 (09:58→17:01)
[2023-04-11] MEDS: METOPROLOL SUCCINATE XL 25 MG TAB.SR.24H PO SCH ×2 (09:59→17:02)
[2023-04-11] MEDS: DORZOLAMIDE/TIMOLOL OPHT DROP 10 ML BOTTLE LEFTEYE SCH ×2 (09:59→17:03)
[2023-04-11] MEDS: ATROPINE SULFATE 1% OPHT DROP 2 ML RIGHTEYE SCH ×2 (10:00→17:03)
[2023-04-11] MEDS: NATEGLINIDE 60 MG TABLET PO SCH ×3 (10:01→17:05)
[2023-04-11] MEDS: ISOSORBIDE MONONITRATE 10 MG TABLET PO SCH (10:02)
[2023-04-11 11:55] VITALS: TEMP 98.2
[2023-04-11] MEDS: HYDROCODONE/APAP 5-325MG TABLET PO PRN (13:29)
[2023-04-11 13:37] VITALS: BP 119/56; TEMP 98.2
[2023-04-11 15:38] VITALS: BP 130/79; TEMP 97
[2023-04-11 20:00] VITALS: BP 147/82; TEMP 98.1; O2SAT 98
[2023-04-11] MEDS: ATORVASTATIN 40 MG TABLET PO SCH (21:12)
[2023-04-11] MEDS: MAGNESIUM OXIDE 400 MG TABLET PO SCH (21:12)
[2023-04-12 01:06] LABS: PTH, INTACT 35 pg/mL (15-65)
[2023-04-12] MEDS: HYDROCODONE/APAP 5-325MG TABLET PO PRN (01:09)
[2023-04-12 05:07] LABS: A/G RATIO 0.9 (0.7-1.7); ALBUMIN 2.6 g/dL (2.9-4.4); ALPHA-1-GLOBULIN 0.1 g/dL (0.0-0.4); ALPHA-2-GLOBULIN 0.8 g/dL (0.4-1.0); BETA GLOBULIN 0.8 g/dL (0.7-1.3); GAMMA GLOBULIN 1.3 g/dL (0.4-1.8); M-SPIKE Not Observed g/dL (Not Observed)
[2023-04-12] MEDS: hydrALAZINE HCL 25 MG TABLET PO SCH (06:00)
[2023-04-12] MEDS: PANTOPRAZOLE SODIUM 40 MG TABLET.DR PO SCH (06:17)
[2023-04-12] MEDS: glipiZIDE 5 MG TABLET PO SCH (07:59)
[2023-04-12] MEDS: CLOPIDOGREL 75 MG TABLET PO SCH (08:13)
[2023-04-12] MEDS: FUROSEMIDE 40 MG TABLET PO SCH (08:13)
[2023-04-12] MEDS: MULTIVITAMINS,THERAPEUTIC TABLET PO SCH (08:13)
[2023-04-12] MEDS: ASPIRIN EC 81 MG TABLET.DR PO SCH (08:14)
[2023-04-12] MEDS: ACIDOPHILUS/BULGARICUS CHEW TAB PO SCH (08:14)
[2023-04-12] MEDS: GABAPENTIN 100 MG CAPSULE PO SCH (08:14)
[2023-04-12] MEDS: OXYBUTYNIN CHLORIDE 5 MG TABLET PO SCH (08:14)
[2023-04-12] MEDS: NATEGLINIDE 60 MG TABLET PO SCH (08:16)
[2023-04-12] MEDS: DORZOLAMIDE/TIMOLOL OPHT DROP 10 ML BOTTLE LEFTEYE SCH (08:17)
[2023-04-12] MEDS: POLYVINYL ALCOHOL OPHT DROPS 15 ML BOTTLE EACHEYE SCH (08:19)
[2023-04-12 08:20] VITALS: BP 138/69
[2023-04-12] MEDS: ISOSORBIDE MONONITRATE 10 MG TABLET PO SCH (08:20)
[2023-04-12] MEDS: ATROPINE SULFATE 1% OPHT DROP 2 ML RIGHTEYE SCH (08:21)
[2023-04-12] MEDS: METOPROLOL SUCCINATE XL 25 MG TAB.SR.24H PO SCH (08:21)
== END 2023-04-12 09:45 | DRG 391 ==
LOC: ER 09:39 → TELE3 21:03 → MEDSURG3 04-11 10:35
PROVIDERS: ADMIT Internal Medicine; ATTEND Internal Medicine
DX: A08.4 Viral intestinal infection, unspecified (principal); N17.0 Acute kidney failure with tubular necrosis; I13.0 Hypertensive heart and chronic kidney disease with heart failure and stage 1 through stage 4 chronic kidney disease, or unspecified chronic kidney disease; I50.32 Chronic diastolic (congestive) heart failure; I42.9 Cardiomyopathy, unspecified; H33.21 Serous retinal detachment, right eye; N13.8 Other obstructive and reflux uropathy; I71.40 Abdominal aortic aneurysm, without rupture, unspecified; E11.22 Type 2 diabetes mellitus with diabetic chronic kidney disease; E11.65 Type 2 diabetes mellitus with hyperglycemia; F25.0 Schizoaffective disorder, bipolar type; I72.3 Aneurysm of iliac artery; I71.43 Infrarenal abdominal aortic aneurysm, without rupture; M79.7 Fibromyalgia; K21.9 Gastro-esophageal reflux disease without esophagitis; G20.A1 Parkinson's disease without dyskinesia, without mention of fluctuations; K76.89 Other specified diseases of liver; R16.0 Hepatomegaly, not elsewhere classified; H54.61 Unqualified visual loss, right eye, normal vision left eye; H40.9 Unspecified glaucoma; N40.1 Benign prostatic hyperplasia with lower urinary tract symptoms; Z88.0 Allergy status to penicillin; Z95.810 Presence of automatic (implantable) cardiac defibrillator; Z95.1 Presence of aortocoronary bypass graft; Z79.02 Long term (current) use of antithrombotics/antiplatelets; Z95.5 Presence of coronary angioplasty implant and graft; I87.2 Venous insufficiency (chronic) (peripheral); E78.5 Hyperlipidemia, unspecified; Z87.891 Personal history of nicotine dependence; J44.9 Chronic obstructive pulmonary disease, unspecified; N18.2 Chronic kidney disease, stage 2 (mild); N32.3 Diverticulum of bladder; N26.1 Atrophy of kidney (terminal); I25.2 Old myocardial infarction; I25.10 Atherosclerotic heart disease of native coronary artery without angina pectoris; E66.9 Obesity, unspecified; Z68.30 Body mass index [BMI] 30.0-30.9, adult; Z86.16 Personal history of COVID-19; Z79.899 Other long term (current) drug therapy; Z79.82 Long term (current) use of aspirin; Z79.84 Long term (current) use of oral hypoglycemic drugs; F41.9 Anxiety disorder, unspecified; E86.9 Volume depletion, unspecified
CPT/HCPCS: 36415; 71045; 83550; 83735; 83970; 84100; 84153; 84155; 84165; 84300; 84443; 84484; 85025; 89055; A4663; A6213; G0378; J3535

== ENCOUNTER 2023-04-14 12:32 | Inpatient (IN) | payer MEDICARE, OTHER ==
[~2023-04-14] VITALS: Ht 185.4 cm; Wt 111.1 kg
[~2023-04-14 12:32] MED LIST changes: +CLON0.1T PO; -DOXY100T2 PO; +FLUT16SP BNOSTRILS; -LATA7.5D LEFTEYE; -LEVO250T59 PO; +LOPE2TAB25 PO; +MAGN400C PO; +ONDA4TAB5 PO; +PEG15DRO3 OP; -POLY15DR31 OP; -PRED5DRO16 RIGHTEYE; +SIME80TA15 PO; +WHEA1POW6 PO
[2023-04-14] MEDS ORDERED: METOCLOPRAMIDE HCL 10 MG/2 ML VIAL IV ONE (12:45)
[2023-04-14] MEDS ORDERED: IV NORMAL SALINE 500 ML BAG IV ONE (12:45)
[2023-04-14 12:55] LABS: BASOPHILS # (AUTO) 0.3 K/UL (0.0-0.2); BASOPHILS % (AUTO) 2.6 % (0.0-2.0); EOSINOPHILS # (AUTO) 0.1 K/uL (0.0-0.7); EOSINOPHILS % (AUTO) 0.9 % (0.0-7.0); HEMATOCRIT 42.9 % (36.7-47.1); HEMOGLOBIN 13.9 g/dL (12.5-16.3); LYMPHOCYTES # (AUTO) 0.5 K/uL (0.8-4.8); LYMPHOCYTES % (AUTO) 4.5 % (20.5-51.5); MEAN CORPUSCULAR HEMOGLOBIN 28.2 uug (23.8-33.4); MEAN CORPUSCULAR HGB CONC 32 g/dL (32.5-36.3); MEAN CORPUSCULAR VOLUME 86.9 fL (73.0-96.2); MONOCYTES # (AUTO) 0.6 K/uL (0.1-1.30); NEUTROPHILS # (AUTO) 9.9 K/uL (1.8-8.9); PLATELET COUNT (AUTO) 209 K/uL (152-348); RED BLOOD CELL COUNT(AUTO) 4.93 MIL/uL (4.06-5.63); RED CELL DISTRIBUTION WIDTH 15.1 % (12.1-16.2); WHITE BLOOD COUNT (AUTO) 11.3 K/uL (3.6-10.2)
[2023-04-14] MEDS ORDERED: diphenhydrAMINE 50 MG/1 ML VIAL ONE (12:57)
[2023-04-14] MEDS ORDERED: METOCLOPRAMIDE HCL 10 MG/2 ML VIAL ONE (12:57)
[2023-04-14] MEDS ORDERED: MORPHINE SULFATE 4 MG/1 ML DISP.SYRIN ONE ×2 (12:57→16:07)
[2023-04-14] MEDS ORDERED: diphenhydrAMINE 50 MG/1 ML VIAL IV ONE (13:00)
[2023-04-14] MEDS ORDERED: MORPHINE SULFATE 4 MG/1 ML DISP.SYRIN IV ONE ×2 (13:00→16:00)
[2023-04-14 13:17] LABS: DIFFERENTIAL COMMENT 1
[2023-04-14 13:23] LABS: ALANINE AMINOTRANSFERASE 27 U/L (16-63); ALBUMIN 4.1 g/dL (3.4-5.0); ALKALINE PHOSPHATASE 92 U/L (50-136); ASPARTATE AMINOTRANSFERASE 19 U/L (15-37); BILIRUBIN,DIRECT 0.2 mg/dL (0.0-0.2); BILIRUBIN,TOTAL 0.7 mg/dL (0.2-1.0); CALCIUM 9.6 mg/dL (8.5-10.1); CARBON DIOXIDE 21 mmol/L (21-32); CHLORIDE 100 mmol/L (98-107); CREATININE 1.5 mg/dL (0.6-1.3); GLUCOSE 193 mg/dL (74-106); LIPASE 28 U/L (16-77); POTASSIUM 3.4 mmol/L (3.5-5.1); SODIUM SERUM 138 mmol/L (136-145); TOTAL PROTEIN, SERUM 7.4 g/dL (6.4-8.2); UREA NITROGEN, BLOOD 20 mg/dL (7-18)
[2023-04-14 13:32] LABS: LACTIC ACID 2.6 mmol/L (0.4-2.0)
[2023-04-14] MEDS ORDERED: IV NORMAL SALINE 1000 ML BAG IV ONE (13:45)
[2023-04-14 14:46] LABS: *BILIRUBIN,URIN NEGATIVE (NEGATIVE); *BLOOD, URINE NEGATIVE (NEGATIVE); *CLARITY,URINE CLEAR (CLEAR); *COLOR,URINE YELLOW (YELLOW); *KETONES,URINE NEGATIVE (NEGATIVE); *PROTEIN,URINE 1+ (NEGATIVE); *UROBILINOGEN,URINE 0.2 E.U./dl (NORMAL); LEUKOCYTE ESTERASE ,URINE NEGATIVE (NEGATIVE); NITRITE, URINE NEGATIVE (NEGATIVE); PH,URINE 7.5 (5.0-8.0)
[2023-04-14 14:54] LABS: UGLUCOSE 1+ (NEGATIVE)
[2023-04-14 15:28] LABS: BACTERIA,URINE NONE SEEN /HPF (NONE SEEN); RBC,URINE 0-3 /HPF (0-3); SQUAMOUS EPITHELIAL CELL,UR FEW /HPF (NONE SEEN); WBC,URINE NONE SEEN /HPF (0-3)
[2023-04-14] MEDS ORDERED: CLONIDINE HCL 0.2 MG TABLET PO ONE (17:30)
[2023-04-14] MEDS ORDERED: METOPROLOL TARTRATE 50 MG TABLET PO ONE (17:30)
[2023-04-14] MEDS ORDERED: METOPROLOL TARTRATE 50 MG TABLET ONE (17:31)
[2023-04-14] MEDS ORDERED: CLONIDINE HCL 0.2 MG TABLET ONE (17:31)
[2023-04-14] MEDS ORDERED: METHOCARBAMOL 500 MG TABLET PO PRN (17:45)
[2023-04-14] MEDS ORDERED: NITROGLYCERIN 0.4 MG/TAB BOTTLE SL PRN (17:45)
[2023-04-14] MEDS ORDERED: SIMETHICONE 80 MG TAB.CHEW PO PRN (17:45)
[2023-04-14] MEDS ORDERED: ONDANSETRON 4 MG/2 ML VIAL IV PRN (18:00)
[2023-04-14] MEDS ORDERED: HYDROMORPHONE 1 MG/1 ML DISP.SYRIN IV PRN (18:00)
[2023-04-14] MEDS ORDERED: MAGNESIUM HYDROXIDE 30 ML LIQUID UDC PO PRN (18:00)
[2023-04-14] MEDS ORDERED: REMEDY ESSENTIAL ZINC PASTE 113 GM TP PRN (18:00)
[2023-04-14] MEDS ORDERED: IV NS 1000 ML 1,000 ML IV PRN (18:00)
[2023-04-14] MEDS ORDERED: ACETAMINOPHEN 325 MG TABLET PO PRN (18:00)
[2023-04-14] MEDS ORDERED: CLONIDINE HCL 0.1 MG TABLET PO PRN (18:15)
[2023-04-14 20:00] VITALS: BP 132/86; TEMP 98; O2SAT 93
[2023-04-14] MEDS ORDERED: ONDANSETRON 4 MG/2 ML VIAL ONE (20:22)
[2023-04-14] MEDS ORDERED: HYDROMORPHONE 1 MG/1 ML DISP.SYRIN ONE (20:22)
[2023-04-14 21:05] VITALS: BP 132/86; TEMP 98; O2SAT 93
[2023-04-15] MEDS ORDERED: SODIUM BICARBONATE 8.4% 50 MEQ/50 ML DISP.SYRIN IV ONE
[2023-04-15] MEDS ORDERED: EPINEPHRINE 1:10,000 1 MG/10 ML DISP.SYRIN ONE
[2023-04-15] MEDS ORDERED: CALCIUM CHLORIDE 1 GM/10 ML DISP.SYRIN IVP ONE
[2023-04-15] MEDS ORDERED: ETOMIDATE 20 MG/10 ML VIAL IV ONE (01:15)
[2023-04-15] MEDS ORDERED: ROCURONIUM BROMIDE 50 MG/5 ML VIAL IV ONE (01:15)
[2023-04-15] MEDS ORDERED: HYDROMORPHONE 1 MG/1 ML DISP.SYRIN IV PRN (05:23)
[2023-04-15] MEDS ORDERED: PANTOPRAZOLE SODIUM 40 MG TABLET.DR PO SCH (07:00)
[2023-04-15] MEDS ORDERED: GABAPENTIN 100 MG CAPSULE PO SCH (09:00)
[2023-04-15] MEDS ORDERED: ISOSORBIDE MONONITRATE 30 MG TAB.SR.24H PO SCH (09:00)
[2023-04-15] MEDS ORDERED: FUROSEMIDE 40 MG TABLET PO SCH (09:00)
[2023-04-15] MEDS ORDERED: METOPROLOL SUCCINATE XL 25 MG TAB.SR.24H PO SCH (09:00)
[2023-04-15] MEDS ORDERED: CLOPIDOGREL 75 MG TABLET PO SCH (09:00)
== END 2023-04-15 01:30 | DRG 299 ==
LOC: ER 12:32 → TRANSITION 18:55 → TELE3 20:53 → TRANSITION 04-15 00:01
PROVIDERS: ADMIT Internal Medicine; ATTEND Internal Medicine
PROC: 5A12012 Performance of Cardiac Output, Single, Manual (ICD-10-PCS; principal; 2023-04-15)
PROC: 0BH17EZ Insertion of Endotracheal Airway into Trachea, Via Natural or Artificial Opening (ICD-10-PCS; 2023-04-15)
DX: I71.43 Infrarenal abdominal aortic aneurysm, without rupture (principal); J96.01 Acute respiratory failure with hypoxia; I42.9 Cardiomyopathy, unspecified; H33.21 Serous retinal detachment, right eye; I13.0 Hypertensive heart and chronic kidney disease with heart failure and stage 1 through stage 4 chronic kidney disease, or unspecified chronic kidney disease; I46.2 Cardiac arrest due to underlying cardiac condition; R10.30 Lower abdominal pain, unspecified; R11.2 Nausea with vomiting, unspecified; I71.40 Abdominal aortic aneurysm, without rupture, unspecified; F25.0 Schizoaffective disorder, bipolar type; H54.61 Unqualified visual loss, right eye, normal vision left eye; Z95.810 Presence of automatic (implantable) cardiac defibrillator; G20.A1 Parkinson's disease without dyskinesia, without mention of fluctuations; I87.2 Venous insufficiency (chronic) (peripheral); Z88.0 Allergy status to penicillin; K21.9 Gastro-esophageal reflux disease without esophagitis; I25.2 Old myocardial infarction; J44.9 Chronic obstructive pulmonary disease, unspecified; N26.1 Atrophy of kidney (terminal); N40.0 Benign prostatic hyperplasia without lower urinary tract symptoms; E11.22 Type 2 diabetes mellitus with diabetic chronic kidney disease; E78.5 Hyperlipidemia, unspecified; I25.10 Atherosclerotic heart disease of native coronary artery without angina pectoris; I50.9 Heart failure, unspecified; K80.20 Calculus of gallbladder without cholecystitis without obstruction; K76.0 Fatty (change of) liver, not elsewhere classified; R19.7 Diarrhea, unspecified; I87.309 Chronic venous hypertension (idiopathic) without complications of unspecified lower extremity; M79.7 Fibromyalgia; N18.9 Chronic kidney disease, unspecified; J30.9 Allergic rhinitis, unspecified; Z79.899 Other long term (current) drug therapy; Z79.84 Long term (current) use of oral hypoglycemic drugs; Z87.891 Personal history of nicotine dependence; Z79.82 Long term (current) use of aspirin; Z95.1 Presence of aortocoronary bypass graft; Z95.5 Presence of coronary angioplasty implant and graft
CPT/HCPCS: 36415; 71045; 83605; 83690; 84484; 85025; 85730; 87040; 92950; 93005; 94002; 94760; A4606; A4663; G0378; J0171; J1170; J1200; J2270; J2405; J2765; J3490; J7040